=== PATIENT | female | born 1955 | race Asian ===

== ENCOUNTER 2018-12-02 09:18 | Day surgery (SDC) | payer OTHER ==
[~2018-12-02] VITALS: Ht 162.6 cm; Wt 58.5 kg
[2018-12-02 09:54] VITALS: Ht 162.6 cm; Wt 58.5 kg
[2018-12-02] MEDS ORDERED: AMLODIPINE (10:09)
[2018-12-02 10:19] VITALS: BP 130/70; PULSE 87; RESP 18
[2018-12-02] MEDS ORDERED: MIDAZOLAM 1 MG/ML 2 ML INJ ONE ×3 (11:23→11:24)
[2018-12-02] MEDS ORDERED: FENTAnyl 50 MCG/ML VIAL ONE (11:24)
== END 2018-12-02 13:30 | disposition home or self-care (01) ==
LOC: GIL 09:18
PROVIDERS: ATTEND Internal Medicine Gastroenterology
DX: Z12.11 Encounter for screening for malignant neoplasm of colon (principal); K64.8 Other hemorrhoids; I10 Essential (primary) hypertension
CPT/HCPCS: 45378; J2250; J3010; Z7610